=== PATIENT | female | born 1960 | race Caucasian/White ===

== ENCOUNTER 2021-06-02 17:42 | Emergency (ER) | payer OTHER ==
[~2021-06-02 17:42] MED LIST: APPLE CIDER VI500 MG PO; ASPIRIN EC81 MG PO; BENTYL10 MG PO; INDERAL LA160 MG PO; LASIX20 MG PO; NORVASC 5MG TABL5 MG PO; PERCOCET 5-3251 EACH PO; PROTONIX 40MG T40 MG PO; ZOCOR40 MG PO
[2021-06-02 21:30] LABS: BASOPHIL 0.7 % (0-2); EOSINOPHIL 1.4 % (0-5); HCT 46.4 % (37.0-47.0); HGB 15.3 g/dl (12.5-16.0); LYMPHOCYTE 17.5 % (15-48); MCH 29.4 pg (25.0-31.0); MCV 89.2 fL (78.0-100.0); MONOCYTE 6.7 % (0-12); MPV 11.6 fL (6.0-9.5); NEUTROPHIL 73.2 % (41-80); NRBC 0; PLT 222 K/uL (150-400); RDW 12.7 % (11.5-14.0); WBC 12.2 K/uL (4.0-10.5)
[2021-06-02 21:56] LABS: ALBUMIN 4.3 g/dL (3.4-5.0); BILIRUBIN - TOTAL 0.6 mg/dL (0.2-1.0); BUN/CREAT RATIO (CALC) 21.4 RATIO; CREATININE 0.56 mg/dL (0.51-0.95); POTASSIUM 3.4 mmol/L (3.5-5.1); TOTAL PROTEIN 7.3 g/dL (6.4-8.2)
[2021-06-02 22:04] LABS: LACTIC ACID 1.2 mmol/L (0.4-1.9)
[2021-06-02 22:10] LABS: CKMB 3.2 ng/mL (0.0-3.6)
[2021-06-02 23:25] LABS: BILIRUBIN NEGATIVE (NEGATIVE); BLOOD NEGATIVE Ery/uL (NEGATIVE); CLARITY CLEAR (CLEAR); COLOR YELLOW (YELLOW); GLUCOSE (U) NORMAL (NORMAL); LEUKOCYTES NEGATIVE Leu/uL (NEGATIVE); NITRITE NEGATIVE (NEGATIVE); PROTEIN NEGATIVE (NEGATIVE); SPECIFIC GRAVITY 1.015 (1.001-1.030)
[2021-06-03] MEDS ORDERED: MEDROL 4MG DOSEP4 MG PO (02:35)
[2021-06-03] MEDS ORDERED: IBUPROFEN800 MG PO (02:35)
[2021-06-03] MEDS ORDERED: CYCLOBENZAPRINE10 MG PO (02:35)
[2021-06-03] MEDS ORDERED: NORCO 5-325 TA1 EACH PO (02:35)
== END 2021-06-03 02:45 | disposition home or self-care (01) ==
LOC: FER 17:42
PROVIDERS: Emergency Medicine Emergency Medical Services
DX: S30.1XXA Contusion of abdominal wall, initial encounter (principal); M25.511 Pain in right shoulder; V49.40XA Driver injured in collision with unspecified motor vehicles in traffic accident, initial encounter; Y92.410 Unspecified street and highway as the place of occurrence of the external cause
CPT/HCPCS: 36415; 70450; 71260; 72125; 72128; 72131; 73130; 73630; 80053; 81003; 82150; 82550; 82553; 83605; 83690; 84484; 85025; 93005; J1100; J1170; J1885; J2405; J2800; J7050; Q9967

== ENCOUNTER → 2021-06-17 | Day surgery (SDC) | payer OTHER ==
[~2021-06-17] VITALS: Ht 157.5 cm; Wt 74.8 kg
[~2021-06-17] MED LIST changes: +CYCLOBENZAPRINE10 MG PO; +IBUPROFEN800 MG PO; +MEDROL 4MG DOSEP4 MG PO; +NORCO 5-325 TA1 EACH PO
== END | disposition home or self-care (01) ==
LOC: FAS 06:12
DX: K58.2 Mixed irritable bowel syndrome (principal); K64.8 Other hemorrhoids; K21.9 Gastro-esophageal reflux disease without esophagitis; I10 Essential (primary) hypertension; E11.9 Type 2 diabetes mellitus without complications; E78.5 Hyperlipidemia, unspecified; G43.909 Migraine, unspecified, not intractable, without status migrainosus; Z79.82 Long term (current) use of aspirin; Z79.1 Long term (current) use of non-steroidal anti-inflammatories (NSAID); Z79.899 Other long term (current) drug therapy
CPT/HCPCS: 93005; J1610; J2250; J2704; J7120